=== PATIENT | female | born 1965 | race African-American/Black ===

== ENCOUNTER 2017-03-19 17:43 | Emergency (ER) | payer OTHER | END 2017-03-19 21:38 | disposition home or self-care (01) | LOC: D.ER 17:43 | DX: S89.92XA Unspecified injury of left lower leg, initial encounter (principal); W10.9XXA Fall (on) (from) unspecified stairs and steps, initial encounter; Y93.89 Activity, other specified; Y92.89 Other specified places as the place of occurrence of the external cause; S49.91XA Unspecified injury of right shoulder and upper arm, initial encounter; I10 Essential (primary) hypertension ==